=== PATIENT | male | born 1985 | race Caucasian/White ===

== ENCOUNTER 2016-09-11 18:12 | Inpatient (IN) | payer MEDICAID, OTHER ==
[2016-09-11 18:46] VITALS: BP 119/77; PULSE 54; RESP 17; O2SAT 100
[2016-09-11 19:14] VITALS: BP 138/79; PULSE 53; RESP 16; TEMP 98.8; O2SAT 100
[2016-09-11] MEDS ORDERED: ONDANSETRON HCL 4 MG/2 ML VIAL IV PUSH ONE (19:30)
[2016-09-11] MEDS ORDERED: MORPHINE SULFATE 4 MG/ML INJ IV PUSH ONE (19:30)
[2016-09-11 19:58] LABS: AUTOMATED NEUTROPHIL # 9.7 TH/MM3 (1.8-7.7); EOSINOPHIL % 0.1 % (0.0-4.0); HEMATOCRIT 39.8 % (39.0-51.0); HEMO FLAGS DIFF FINAL; LYMPH % 10.6 % (9.0-44.0); LYMPHOCYTE # 1.2 TH/MM3 (1.0-4.8); MEAN CELL VOLUME 88.3 FL (80.0-100.0); MEAN CORPUSCULAR HEMOGLOBIN 29.5 PG (27.0-34.0); MEAN CORPUSCULAR HGB CONC 33.4 % (32.0-36.0); MONO % 2.5 % (0.0-8.0); NEUT % 86.8 % (16.0-70.0); PLATELET COUNT 246 TH/MM3 (150-450); RED BLOOD COUNT 4.51 MIL/MM3 (4.50-5.90); RED CELL DISTRIBUTION WIDTH 13.6 % (11.6-17.2); WHITE BLOOD COUNT 11.2 TH/MM3 (4.0-11.0)
[2016-09-11 20:20] LABS: ANION GAP 9 MEQ/L (5-15); AST (GOT) 62 U/L (15-37); BICARBONATE 28.1 MEQ/L (21.0-32.0); BLOOD UREA NITROGEN 18 MG/DL (7-18); CHLORIDE 102 MEQ/L (98-107); GLOMERULAR FILTRATION RATE 99 ML/MIN (>89); POTASSIUM 3.9 MEQ/L (3.5-5.1); SODIUM (NA) 139 MEQ/L (136-145)
[2016-09-11 20:23] LABS: ALKALINE PHOSPHATASE 100 U/L (45-117); ALT (GPT) 79 U/L (12-78); TOTAL BILIRUBIN ADULT 0.7 MG/DL (0.2-1.0)
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
[2016-09-11] MEDS ORDERED: HYDROmorphone HCL PF 1 MG/ML VIAL IV PUSH ONE (20:45)
[2016-09-11] MEDS ORDERED: SODIUM CHLORIDE 0.9% FLUSH 5 ML FLUSH FLUSH PRN (21:45)
[2016-09-11] MEDS ORDERED: NALOXONE HCL 0.4 MG/ML AMP IV PRN (21:45)
[2016-09-11] MEDS ORDERED: ONDANSETRON HCL 4 MG/2 ML VIAL IVP PRN (21:45)
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
[2016-09-12 00:01] VITALS: BP 115/71; PULSE 68; RESP 16; O2SAT 98
[2016-09-12] MEDS: HYDROmorphone HCL PF 1 MG/ML VIAL IV PUSH PRN ×2 (02:34→06:39)
[2016-09-12 04:23] VITALS: BP 104/56; PULSE 55; RESP 16; O2SAT 98
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
[2016-09-12] MEDS ORDERED: HYDR-3288 PO (08:25)
--- NOTE | 2016-09-12 08:28 | HHI.PR ---
Subjective Remarks in no acute distress. complaining of pain to the left hand. is ready to go home. Objective Vitals Vital Signs Date Time Temp Pulse Resp B/P Pulse Ox O2 Delivery O2 Flow Rate FiO2 09/12/16 04:23 55 16 104/56 98 Room Air 09/12/16 03:08 16 09/12/16 00:01 68 16 115/71 98 Room Air 09/11/16 21:14 16 09/11/16 19:14 98.8 53 16 138/79 100 Room Air 09/11/16 18:46 54 17 119/77 100 Result Diagram: 09/11/16191409/11/161914 Imaging Last Impressions Wrist X-Ray 09/11/16 0000 Signed Impressions: Service Date/Time: Sunday, September 11, 2016 19:56 - CONCLUSION: Left ulnar shaft fracture Intact left wrist Tello Munguia MD Radius/Ulna X-Ray 09/11/16 0000 Signed Impressions: Service Date/Time: Sunday, September 11, 2016 19:58 - CONCLUSION: Fractured left ulnar and radial shafts as described. Tello Munguia MD Objective Remarks GENERAL: This is a well-nourished, well-developed patient, in no apparent distress. CARDIOVASCULAR: Regular rate and regular rhythm without murmurs, gallops, or rubs. RESPIRATORY: Clear to auscultation. Breath sounds equal bilaterally. No wheezes , rales, or rhonchi. GASTROINTESTINAL: Abdomen soft, non-tender, nondistended. Normal, active bowel sounds MUSCULOSKELETAL: left hand covered with clean dressing. NEURO: Alert & Oriented x4 to person, place, time, situation. Moves all ext x4 Procedures none Medications and IVs Current Medications Ondansetron HCl (Zofran Inj) 4 mg ONCE ONCE IV PUSH Last administered on 20:43; Start 09/11/16 at 19:30; Stop 09/11/16 at 19:31; Status DC Morphine Sulfate (Morphine Inj) 4 mg ONCE ONCE IV PUSH ; Start 09/11/16 at 19:30 ; Stop 09/11/16 at 19:31; Status DC Hydromorphone HCl (Dilaudid Pf Inj) 1 mg ONCE ONCE IV PUSH Last administered on 09/11/16 20:44; Start 09/11/16 at 20:45; Stop 09/11/16 at 20:46; Status DC IV Flush (NS Flush) 2 ml UNSCH PRN FLUSH FLUSH AFTER USING IV ACCESS; Start 09/11/16 at 21:45 IV Flush (NS Flush) 2 ml BID FLUSH ; Start 09/12/16 at 09:00 Ondansetron HCl (Zofran Inj) 4 mg Q6H PRN IVP NAUSEA OR VOMITING; Start at 21:45 Naloxone HCl (Narcan Inj) 0.4 mg UNSCH PRN IV SEE LABEL COMMENTS; Start at 21:45 Hydromorphone HCl (Dilaudid Pf Inj) 1 mg Q4H PRN IV PUSH pain >5 Last administered on 09/12/16t 06:39; Start 09/11/16 at 21:45 A/P Assessment and Plan A/P Left Radius/ulnar fracture Images: Radius/ulnar x-ray shows Fractured left ulnar and radial shafts as described. -Orthopedic consulted; patient wants to go home and come back for the surgery. elevated LFT's- f/u as outpatient. Discharge Planning dc home with f/u by pcp and ortho. see med list. d/w the patient and RN. Amber Robles MD Sep 12, 2016 08:28
--- NOTE | 2016-09-12 08:28 | HHI.DCPOC ---
Discharge Care Plan Diagnosis: (1) Radius/ulna fracture Your Health Problems Are: Swelling Additional Problems pain Goals to Promote Your Health * To prevent worsening of your condition and complications * To maintain your health at the optimal level Directions to Meet Your Goals Take your medications as prescribed Follow your dietary instruction Follow activity as directed Keep your appointments as scheduled Take your immunizations and boosters as scheduled If your symptoms worsen call your PCP, if no PCP go to Urgent Care Center or Emergency Room Smoking is Dangerous to Your Health. Avoid second hand smoke Call the 24-hour hour crisis hotline for domestic abuse at Amber Robles MD Sep 12, 2016 08:28
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
[2016-09-12] MEDS ORDERED: SODIUM CHLORIDE 0.9% FLUSH 5 ML FLUSH FLUSH SCH (09:00)
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
[2016-09-13] MEDS ORDERED: HYDR-3366 PO (09:16)
[2016-09-13] MEDS ORDERED: PERC7.5T13 PO (12:06)
== END 2016-09-12 08:45 | disposition home or self-care (01) | DRG 563 ==
LOC: NEPE 18:12 → NEDA 21:43 → NEDH 09-12 01:43
PROVIDERS: ADMIT Internal Medicine; ATTEND Internal Medicine
DX: S52.302A Unspecified fracture of shaft of left radius, initial encounter for closed fracture (principal); S52.202A Unspecified fracture of shaft of left ulna, initial encounter for closed fracture; V18.4XXA Pedal cycle driver injured in noncollision transport accident in traffic accident, initial encounter; Y93.55 Activity, bike riding; Y92.9 Unspecified place or not applicable; F12.90 Cannabis use, unspecified, uncomplicated; R79.89 Other specified abnormal findings of blood chemistry; F17.200 Nicotine dependence, unspecified, uncomplicated
CPT/HCPCS: 29105; 73090; 73110; 80053; 85025; 96374; 96375; J1170; J2405

== ENCOUNTER 2016-09-13 07:11 | Observation (INO) | payer OTHER, MEDICAID ==
[~2016-09-13 07:11] MED LIST: HYDR-3288 PO
[2016-09-13 07:20] VITALS: BP 110/66; PULSE 63; RESP 16; TEMP 98.1; O2SAT 98
[2016-09-13] MEDS: CHLORHEXIDINE GLUCONATE 4% SOLN 120 ML BTL TOP SCH (07:45)
[2016-09-13] MEDS ORDERED: INSULIN HUMAN REGULAR 1,000 UNITS/10 ML VIAL SQ PRN (07:45)
[2016-09-13] MEDS ORDERED: VANCOMYCIN 1000 MG/NS 250 ML (for <70 kg) IV SCH ×2 (07:45)
[2016-09-13] MEDS ORDERED: ceFAZolin 2 GM PREMIX 50 ML IV SCH (07:45)
[2016-09-13] MEDS ORDERED: METOPROLOL TARTRATE 25 MG TAB PO PRN (07:45)
[2016-09-13] MEDS ORDERED: SODIUM CHLORID 0.9% 500 ML IV SCH (07:45)
[2016-09-13] MEDS: LACTATED RINGER'S 1000 ML IV SCH (08:00)
[2016-09-13] MEDS ORDERED: GENTAMICIN SULFATE 80 MG/2 ML VIAL ONE (08:49)
[2016-09-13] MEDS ORDERED: HYDR-3366 PO (09:16)
--- NOTE | 2016-09-13 09:17 | HHI.FF ---
Face to Face Verification Diagnosis: (1) Radius/ulna fracture Occupational Therapy Left UE Weight Bearing: Non WB Left UE Range of Motion: Passive ROM (elbow/wrist/fingers) Nursing Dressing Changes: Daily dressing change, Grant wrap (ok to transition to xeroform /coverderm (primapore) if drainage minimal), 4x4s, Xeroform I have seen patient Quinn McdowellteodoromaylinWALESKA on 09/13/16. My clinical findings support the need for the requested home health care services because: Ltd mobility - disease progression I certify that my clinical findings support that this patient is homebound because: Post-op weakness Franco Shetty Sep 13, 2016 09:17
[2016-09-13] MEDS ORDERED: DEXAMETHASONE SOD PHOS 4 MG/ML VIAL ONE (09:57)
[2016-09-13] MEDS ORDERED: FAMOTIDINE 20 MG/2 ML VIAL ONE (09:57)
[2016-09-13] MEDS ORDERED: MIDAZOLAM HCL 2 MG/2 ML VIAL ONE (09:57)
[2016-09-13] MEDS ORDERED: ACETAMINOPHEN 1000 MG/100 ML VIAL IV ONE (09:57)
[2016-09-13] MEDS ORDERED: PROPOFOL 200 MG/20 ML AMP IV ONE (10:21)
[2016-09-13] MEDS ORDERED: KETOROLAC TROMETHAMINE 60 MG/2 ML (IM) VIAL IM ONE (10:22)
[2016-09-13] MEDS ORDERED: ONDANSETRON HCL 4 MG/2 ML VIAL IV PUSH ONE (10:22)
[2016-09-13] MEDS ORDERED: fentaNYL CITRATE 250 MCG/5 ML AMP ONE (10:22)
[2016-09-13] MEDS ORDERED: ceFAZolin INJ 1,000 MG VIAL IV ONE (10:43)
[2016-09-13] MEDS: KETOROLAC TROMETHAMINE 30 MG/ML (IVP) VIAL IV PUSH SCH ×2 (12:00→18:13)
[2016-09-13] MEDS ORDERED: PERC7.5T13 PO (12:06)
[2016-09-13] MEDS ORDERED: *MEPERIDINE 25 MG INJ VIAL PERIprocedural Use ONLY ONE (12:41)
[2016-09-13] MEDS ORDERED: *morphine SULFATE 8 MG/ML PERIprocedure ONLY ONE ×3 (12:49→13:32)
[2016-09-13] MEDS ORDERED: DO NOT ADM ANY ANTICOAGULANT DRUGS XX PRN (13:00)
[2016-09-13] MEDS: MORPHINE SULFATE 4 MG/ML INJ IV PUSH PRN ×2 (14:23→18:12)
[2016-09-13] MEDS: ceFAZolin 2 GM PREMIX 50 ML IV SCH ×2 (14:24→22:53)
[2016-09-13 14:35] VITALS: BP 125/80; PULSE 50; RESP 17; TEMP 96; O2SAT 97
--- NOTE | 2016-09-13 15:19 | PD.ORT.PN ---
Subjective Subjective Remarks POD 0 s/p ORIF left BBFA Objective Vitals Vital Signs Date Time Temp Pulse Resp B/P Pulse Ox O2 Delivery O2 Flow Rate FiO2 09/13/16 14:16 Room Air 09/13/16 14:00 98.7 46 16 136/78 96 Room Air 09/13/16 13:45 51 16 135/86 95 Room Air 09/13/16 13:30 51 16 135/86 95 Room Air 09/13/16 13:15 51 16 135/85 90 Room Air 09/13/16 13:00 62 16 150/91 96 Room Air 09/13/16 12:45 79 16 150/91 94 Room Air 09/13/16 12:39 98.3 103 16 173/110 99 Nasal Cannula 2 09/13/16 07:20 98.1 63 16 110/66 98 I/O 09/12/16 09/12/16 09/12/16 09/13/16 09/13/16 09/13/16 07:00 15:00 23:00 07:00 15:00 23:00 Intake Total 1400 ml Output Total 600 ml Balance 800 ml Intake IV Total 300 ml Other 1100 ml Output Urine Total 500 ml Estimated Blood Loss 100 ml Objective Remarks LUE: dressings cleaqn and dry. intact. +sling Assessment & Plan Assessment and Plan 1) Left BBFA Fx s/p ORIF - POD 0 -NWB -daily dressing changes POD 2 -home with C -plan for DC Friday -Scripts on chart -f/u with [facility] or [facility] in 2 weeks Franco Shetty Sep 13, 2016 15:19
[2016-09-13] MEDS: oxyCODONE/ACETAMINOPHEN 7.5 MG/325 MG TAB PO PRN ×2 (16:31→20:29)
--- NOTE | 2016-09-13 19:18 | RADRPT ---
EXAM DATE/TIME: 09/13/2016 11:46 [facility] COMPARISON: FOREARM LEFT (2VWS), September 11, 2016, 19:58. INDICATIONS : Orif left forearm. MEDICAL HISTORY : Fractures of both the ulnar and radial shafts. SURGICAL HISTORY : ENCOUNTER: Subsequent ACUITY: 2 days PAIN SCORE: Non-responsive. LOCATION: Left Forearm. FINDINGS: Left radial and ulnar shaft fractures have been stabilized with extra medullary plates. There is good alignment of fracture fragments. CONCLUSION: Satisfactory appearance of the left radius and all the following ORIF. Tello Munguia MD on September 13, 2016 at 19:03 Board Certified Radiologist. This report was verified electronically.
[2016-09-13 21:11] VITALS: BP 132/60; PULSE 59; RESP 20; TEMP 96.4; O2SAT 97
[2016-09-14] MEDS: oxyCODONE/ACETAMINOPHEN 7.5 MG/325 MG TAB PO PRN ×2 (00:44→08:55)
[2016-09-14] MEDS: KETOROLAC TROMETHAMINE 30 MG/ML (IVP) VIAL IV PUSH SCH (00:46)
[2016-09-14 01:06] VITALS: BP 112/70; PULSE 58; RESP 20; TEMP 96.7; O2SAT 97
[2016-09-14 05:42] VITALS: BP 116/58; PULSE 58; RESP 18; TEMP 96; O2SAT 100
[2016-09-14] MEDS: LACTATED RINGER'S 1000 ML IV SCH ×2 (07:45→09:06)
[2016-09-14] MEDS: CHLORHEXIDINE GLUCONATE 4% SOLN 120 ML BTL TOP SCH (07:45)
[2016-09-14 08:00] VITALS: BP 134/80; PULSE 64; RESP 20; TEMP 97.7; O2SAT 100
--- NOTE | 2016-09-14 09:52 | PD.ORT.PN ---
Subjective Subjective Remarks no issues. ready to dc home Objective Vitals Vital Signs Date Time Temp Pulse Resp B/P Pulse Ox O2 Delivery O2 Flow Rate FiO2 09/14/16 08:00 97.7 64 20 134/80 100 09/14/16 05:42 96.0 58 18 116/58 100 09/14/16 01:06 96.7 58 20 112/70 97 09/13/16 21:11 96.4 59 20 132/60 97 09/13/16 14:35 96.0 50 17 125/80 97 09/13/16 14:16 Room Air 09/13/16 14:00 98.7 46 16 136/78 96 Room Air 09/13/16 13:45 51 16 135/86 95 Room Air 09/13/16 13:30 51 16 135/86 95 Room Air 09/13/16 13:15 51 16 135/85 90 Room Air 09/13/16 13:00 62 16 150/91 96 Room Air 09/13/16 12:45 79 16 150/91 94 Room Air 09/13/16 12:39 98.3 103 16 173/110 99 Nasal Cannula 2 I/O 09/13/16 09/13/16 09/13/16 09/14/16 09/14/16 09/14/16 07:00 15:00 23:00 07:00 15:00 23:00 Intake Total 1400 ml 289 ml 173 ml Output Total 600 ml 1000 ml Balance 800 ml 289 ml -827 ml Intake IV Total 300 ml 289 ml 173 ml Other 1100 ml Output Urine Total 500 ml 1000 ml Estimated Blood Loss 100 ml # Bowel Movements 0 Objective Remarks LUE: dressings cleaqn and dry. intact. +sling. nvi Assessment & Plan Assessment and Plan 1) Left BBFA Fx s/p ORIF - POD 1 -NWB -no dressing changes -home with [facility] -plan for DC today -Scripts on chart -f/u with Blake or [facility]VIN in 2 weeks Benji Landeros Jr., MD Sep 14, 2016 09:52
--- NOTE | 2016-09-17 15:34 | PD.OP ---
cc: Abhay Boyce MD Operative Report Date of Surgery: Sep 17, 2016 Preoperative Diagnosis: Left radius and ulna shaft fractures Postoperative Diagnosis: Same Procedure: Open reduction internal fixation left radius and ulna Anesthesia: Gen. Surgeon: Abhay Boyce Internet Webmaster(s): JORGE Davila PA-C The surgical procedure was assisted by my physician tmd teacher assistant. My P.A. presence was necessary throughout this case for the manipulation and positioning of the surgical extremity. My P.A. was assisting me throughout the duration of this procedure. The skill set of a physician tmd teacher assistant was medically necessary to complete this procedure. During the surgical case the assembler surgical garment was working at the back table and the physician tmd teacher assistant was directly assisting me. Operation and Findings: Patient was seen and evaluated preoperatively and found to have displaced radius and ulna shaft fractures. Informed consent was obtained after detailed discussion of risk and benefits including bleeding, infection, injury to arteries, nerves, and blood vessels, weakness and numbness of hand, and tendon rupture. Informed consent was obtained. Patient received IV antibiotics prior to incision. Timeout procedure was performed. Operative extremity was prepped with alcohol followed by Hibiclens and draped usual sterile fashion. A standard volar approach to the radius was utilized. A 5 inch incision was made. The interval was identified between the radial artery and superficial radial nerve. Neurovascular structures were protected throughout the procedure. Fracture was identified. Fracture was cleaned with curettes. Fracture was reduced and keyed in anatomic alignment. An 8 hole Synthes plate was contoured to fit the radius. Plate was provisionally held with K wires. 3.5 cortical screws were used to compress plate to bone. 3 screws were placed on each side of the fracture. Fluoroscopy confirmed excellent alignment of fracture. Wound was thoroughly irrigated with saline. Subcutaneous tissues closed with 3-0 Vicryl and skin was closed with frandy. Next attention was turned towards the ulna. An 8 inch incision was made over the subcutaneous border of the ulna. There was a segmental fracture of the ulna. The distal fracture was reduced first. This keyed into anatomic alignment. K wires were used to hold provisional fixation. The proximal ulna was reduced next. This also keyed into excellent alignment. A long 3.5 plate was placed over the ulna. Plate was provisionally held to bone with K wires. Multiple 3.5 cortical screws were used to compress plate to bone. 2 screws were placed into the distal segment, middle segment, and proximal segment. K wires were removed. Final fluoroscopy revealed excellent of fracture with well- placed hardware. The wound was thoroughly irrigated with sterile saline. Subcutaneous tissue was closed with 3-0 Vicryl and skin was closed with 3-0 nylon. Sterile dressings were applied with Xeroform, 4 x 4, soft roll, and Grant wrap. Patient was awakened and transferred to recovery room in stable condition Abhay Boyce MD Sep 17, 2016 15:34
== END 2016-09-14 12:05 | disposition home or self-care (01) ==
LOC: HSDC 07:11 → HSDI 12:06 → N06B 14:15
PROVIDERS: ADMIT Orthopaedic Surgery Orthopaedic Trauma; ATTEND Orthopaedic Surgery Orthopaedic Trauma
DX: S52.302A Unspecified fracture of shaft of left radius, initial encounter for closed fracture (principal); S52.202A Unspecified fracture of shaft of left ulna, initial encounter for closed fracture; V19.88XA Pedal cyclist (driver) (passenger) injured in other specified transport accidents, initial encounter
CPT/HCPCS: 01830; 25575; 73090; 76000; 97166; C1713; G0378; J0131; J0690; J1100; J1580; J1885; J2175; J2250; J2270; J2405; J3010; J3370; J7050; J7120

== ENCOUNTER 2016-10-05 00:59 | Emergency (ER) | payer MEDICAID, OTHER ==
[~2016-10-05] VITALS: Ht 185.4 cm; Wt 55.9 kg
[~2016-10-05 00:59] MED LIST changes: -HYDR-3288 PO; +PERC7.5T13 PO
[2016-10-05 01:11] VITALS: BP 129/84; PULSE 70; RESP 14; TEMP 98.2; O2SAT 97
--- NOTE | 2016-10-05 01:15 | PD ---
HPI Chief Complaint: psychiatric evaluation Time Seen by Provider: 01:12 Travel History International Travel<30 days: No Contact w/Intl Traveler<30days: No History of Present Illness HPI Patient comes in under Shane act by police for allegedly making suicidal statements. Patient denies any suicidal or homicidal ideations. Patient states that he came home from work and he found his in bed with another man and got Shane acted. Patient only medical concern at the moment his discomfort as left forearm from recent orthopedic surgery. Patient denies any chest pain, shortness of breath, fevers, nausea, vomiting, abdominal pain, or headaches. PFSH Past Medical History Depression: Yes Cancer: No Cardiovascular Problems: No Diabetes: No Endocrine: No Genitourinary: No Hepatitis: No Hiatal Hernia: No Immune Disorder: No Musculoskeletal: Yes (broken left arm) Neurologic: No Psychiatric: No Reproductive: No Respiratory: No Thyroid Disease: No Past Surgical History Abdominal Surgery: No AICD: No Cardiac Surgery: No Ear Surgery: Yes (tubes as a child) Endocrine Surgery: No Eye Surgery: No Genitourinary Surgery: No Gynecologic Surgery: No Joint Replacement: No Oral Surgery: No Pacemaker: No Thoracic Surgery: No Social History Alcohol Use: Yes (occasional ) Tobacco Use: No Substance Use: Yes (MARIJUANA) Allergies-Medications (Allergen,Severity, Reaction): Coded Allergies: Hydrocodone (Verified Adverse Reaction, Intermediate, itching, 10/05/16) Reported Meds & Prescriptions Reported Meds & Active Scripts Active Percocet (Oxycodone-Acetaminophen) 7.5-325 mg Tab 1 Tab PO Q3HR PRN Review of Systems Except as stated in HPI: all other systems reviewed are Neg Physical Exam Narrative GENERAL: Well-developed, under nourished, in no acute distress, and non-ill appearing. SKIN: Warm and dry. HEAD: Atraumatic. Normocephalic. EYES: Pupils equal and round. EOMI. No scleral icterus. No injection or drainage. ENT: No nasal bleeding or discharge. Mucous membranes pink and moist. NECK: Trachea midline. Supple. No nuclear rigidity. CARDIOVASCULAR: Regular rate and rhythm. No murmur appreciated. RESPIRATORY: No accessory muscle use. No respiratory distress. Clear to auscultation. Breath sounds equal bilaterally. MUSCULOSKELETAL: No obvious deformities. No clubbing. No cyanosis. No edema. Full range of motion. NEUROLOGICAL: Awake and alert. No obvious cranial nerve deficits. Motor grossly within normal limits. Normal speech. PSYCHIATRIC: Appropriate mood and affect; insight and judgment normal. Data Data Last Documented VS Vital Signs Date Time Temp Pulse Resp B/P Pulse Ox O2 Delivery O2 Flow Rate FiO2 10/05/16 01:11 98.2 70 14 129/84 97 Orders Complete Blood Count With Diff (10/05/16 01:02) Comprehensive Metabolic Panel (10/05/16 01:02) Psych Screen (10/05/16 01:02) Drug Screen, Random Urine (10/05/16 01:02) Alcohol (Ethanol) (10/05/16 01:02) Salicylates (Aspirin) (10/05/16 01:02) Tylenol (Acetaminophen) (10/05/16 01:02) Labs Laboratory Tests Test 10/05/16 10/05/16 01:15 01:30 White Blood Count 8.0 TH/MM3 Red Blood Count 4.45 MIL/MM3 Hemoglobin 13.1 GM/DL Hematocrit 39.5 % Mean Corpuscular Volume 88.8 FL Mean Corpuscular Hemoglobin 29.5 PG Mean Corpuscular Hemoglobin 33.3 % Concent Red Cell Distribution Width 14.2 % Platelet Count 216 TH/MM3 Mean Platelet Volume 8.8 FL Neutrophils (%) (Auto) 79.7 % Lymphocytes (%) (Auto) 13.6 % Monocytes (%) (Auto) 5.9 % Eosinophils (%) (Auto) 0.3 % Basophils (%) (Auto) 0.5 % Neutrophils # (Auto) 6.4 TH/MM3 Lymphocytes # (Auto) 1.1 TH/MM3 Monocytes # (Auto) 0.5 TH/MM3 Eosinophils # (Auto) 0.0 TH/MM3 Basophils # (Auto) 0.0 TH/MM3 CBC Comment DIFF FINAL Differential Comment Sodium Level 142 MEQ/L Potassium Level 3.6 MEQ/L Chloride Level 106 MEQ/L Carbon Dioxide Level 27.8 MEQ/L Anion Gap 8 MEQ/L Blood Urea Nitrogen 15 MG/DL Creatinine 0.82 MG/DL Estimat Glomerular Filtration 111 ML/MIN Rate Random Glucose 138 MG/DL Calcium Level 9.5 MG/DL Total Bilirubin 0.5 MG/DL Aspartate Amino Transf 24 U/L (AST/SGOT) Alanine Aminotransferase 33 U/L (ALT/SGPT) Alkaline Phosphatase 101 U/L Total Protein 7.2 GM/DL Albumin 4.0 GM/DL Salicylates Level LESS THAN 1.7 MG/DL Acetaminophen Level LESS THAN 2.0 MCG/ML Ethyl Alcohol Level 4 MG/DL Urine Opiates Screen NEG Urine Barbiturates Screen NEG Urine Amphetamines Screen NEG Urine Benzodiazepines Screen NEG Urine Cocaine Screen NEG Urine Cannabinoids Screen POS MDM Medical Decision Making Medical Screen Exam Complete: Yes Emergency Medical Condition: Yes Differential Diagnosis Suicidal, homicidal, adjustment disorder,mood disorder, electrolyte abnormality , other Narrative Course Patient was seen and examined. Labs were obtained and reviewed. Patient medically cleared for further treatment and evaluation by psych. Final disposition per psych. Diagnosis Primary Impression: Medical clearance for psychiatric admission Condition: Stable Choco Lyle Oct 05, 2016 01:15
[2016-10-05 01:49] LABS: AUTOMATED NEUTROPHIL # 6.4 TH/MM3 (1.8-7.7); BASOPHIL % 0.5 % (0.0-2.0); EOSINOPHIL % 0.3 % (0.0-4.0); HEMATOCRIT 39.5 % (39.0-51.0); HEMO FLAGS DIFF FINAL; LYMPH % 13.6 % (9.0-44.0); LYMPHOCYTE # 1.1 TH/MM3 (1.0-4.8); MEAN CELL VOLUME 88.8 FL (80.0-100.0); MEAN CORPUSCULAR HEMOGLOBIN 29.5 PG (27.0-34.0); MEAN CORPUSCULAR HGB CONC 33.3 % (32.0-36.0); MONO % 5.9 % (0.0-8.0); NEUT % 79.7 % (16.0-70.0); PLATELET COUNT 216 TH/MM3 (150-450); RED BLOOD COUNT 4.45 MIL/MM3 (4.50-5.90); RED CELL DISTRIBUTION WIDTH 14.2 % (11.6-17.2)
[2016-10-05 02:05] LABS: AMPHETAMINE, URINE NEG (NEG); BARBITURATES, URINE NEG (NEG); COCAINE, URINE NEG (NEG)
[2016-10-05 02:18] LABS: ALT (GPT) 33 U/L (12-78); ANION GAP 8 MEQ/L (5-15); AST (GOT) 24 U/L (15-37); BICARBONATE 27.8 MEQ/L (21.0-32.0); BLOOD UREA NITROGEN 15 MG/DL (7-18); CHLORIDE 106 MEQ/L (98-107); GLOMERULAR FILTRATION RATE 111 ML/MIN (>89); POTASSIUM 3.6 MEQ/L (3.5-5.1); SODIUM (NA) 142 MEQ/L (136-145)
[2016-10-05 02:21] LABS: ACETAMINOPHEN LESS THAN 2.0 MCG/ML (10.0-30.0); ALKALINE PHOSPHATASE 101 U/L (45-117); TOTAL BILIRUBIN ADULT 0.5 MG/DL (0.2-1.0)
[2016-10-05 06:14] VITALS: BP 127/59; PULSE 59; RESP 18; TEMP 97.4; O2SAT 99
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
== END 2016-10-05 14:30 | disposition home or self-care (01) ==
LOC: NEPA 00:59 → NEPJ 14:30
DX: F43.21 Adjustment disorder with depressed mood (principal); F32.9 Major depressive disorder, single episode, unspecified; F12.90 Cannabis use, unspecified, uncomplicated; Z72.0 Tobacco use
CPT/HCPCS: 80053; 80307; 85025; 99283

== ENCOUNTER 2016-11-22 01:46 | Emergency (ER) | payer SELFPAY ==
[~2016-11-22] VITALS: Ht 185.4 cm; Wt 55.0 kg
[2016-11-22] VITALS (7 sets, daily range): BP systolic 113–146; BP diastolic 63–74; PULSE 60–77; RESP 16–18; TEMP 97.8–98.6; O2SAT 96–99
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
[2016-11-22 02:51] LABS: AUTOMATED NEUTROPHIL # 5.5 TH/MM3 (1.8-7.7); BASOPHIL % 0.1 % (0.0-2.0); EOSINOPHIL # 0.1 TH/MM3 (0-0.4); EOSINOPHIL % 0.8 % (0.0-4.0); HEMO FLAGS DIFF FINAL; LYMPH % 18.3 % (9.0-44.0); LYMPHOCYTE # 1.3 TH/MM3 (1.0-4.8); MEAN CELL VOLUME 86.5 FL (80.0-100.0); MEAN CORPUSCULAR HEMOGLOBIN 29.1 PG (27.0-34.0); MEAN CORPUSCULAR HGB CONC 33.6 % (32.0-36.0); MONO % 5.9 % (0.0-8.0); NEUT % 74.9 % (16.0-70.0); PLATELET COUNT 211 TH/MM3 (150-450); RED BLOOD COUNT 4.28 MIL/MM3 (4.50-5.90); RED CELL DISTRIBUTION WIDTH 13.3 % (11.6-17.2); WHITE BLOOD COUNT 7.3 TH/MM3 (4.0-11.0)
[2016-11-22 03:15] LABS: ALT (GPT) 22 U/L (12-78); ANION GAP 8 MEQ/L (5-15); AST (GOT) 19 U/L (15-37); BICARBONATE 28.3 MEQ/L (21.0-32.0); BLOOD UREA NITROGEN 12 MG/DL (7-18); CHLORIDE 107 MEQ/L (98-107); GLOMERULAR FILTRATION RATE 89 ML/MIN (>89); POTASSIUM 3.8 MEQ/L (3.5-5.1); SODIUM (NA) 143 MEQ/L (136-145)
[2016-11-22 03:18] LABS: ACETAMINOPHEN LESS THAN 2.0 MCG/ML (10.0-30.0); ALKALINE PHOSPHATASE 96 U/L (45-117); TOTAL BILIRUBIN ADULT 0.3 MG/DL (0.2-1.0)
[2016-11-22 06:17] LABS: AMPHETAMINE, URINE NEG (NEG); BARBITURATES, URINE NEG (NEG); COCAINE, URINE NEG (NEG)
== END 2016-11-22 20:00 | disposition home or self-care (01) ==
LOC: NEPD 01:46 → NEPJ 20:00
DX: F31.9 Bipolar disorder, unspecified (principal); F17.200 Nicotine dependence, unspecified, uncomplicated
CPT/HCPCS: 80053; 80307; 85025; 99283